=== PATIENT | male | born 1945 | race Caucasian/White ===

== ENCOUNTER 2019-12-02 18:50 | Inpatient (IN) | payer MEDICARE ==
[~2019-12-02] VITALS: Ht 175.3 cm; Wt 124.6 kg
[~2019-12-02 18:50] MED LIST: ACETAMINOPHEN325 MG PO; ALDACTONE25 MG PO; AMBIEN5 MG PO; ANUSOL-HC25 MG RC; BAYER CHEWABLE81 MG PO; BETAPACE 80 MG80 MG PO; CHLORASEPTIC177 ML TOPICAL; ELAVIL25 MG PO; ELIQUIS2.5 MG PO; ELIQUIS5 MG PO; FAMOTIDINE10 MG PO; FARXIGA10 MG PO; FUROSEMIDE40 MG PO; GLUCOSAMINE HC500 MG PO; HUMALOG 30100 UNITS/ SC; JANUMET 50-1,01 EAC1 PO; KLONOPIN0.5 MG PO; LIPITOR10 MG PO; LISINOPRIL-HCT1 EAC8 PO; METOLAZONE2.5 MG PO; MIDODRINE HCL10 MG PO; NORCO-7.51 TAB PO; POTASSIUM CHLO10 ME1 PO; SALINE MIST; TOPROL XL100 MG PO; ULORIC40 MG PO
--- NOTE | 2019-12-02 19:10 | NUR ---
PT SITTING UP WATCHING TV. CL IN REACH. DENIES NEEDS AT THIS TIME. BED IN LOW SIDE RAILS X2. BED ALARM ON. A/O X4. LUNGS DIMINISHED. O2 ON 2L VIA NC. BOWEL ACTIVE X4. RESP EVEN AND UNLABORED. OLSEN INTACT. URINE WNL, NO ODOR. WILL CONTINUE TO MONITOR.
[2019-12-02 22:21] VITALS: BP 108/47
[2019-12-02 22:29] VITALS: BP 108/47; BMI 37.0
--- NOTE | 2019-12-03 04:35 | NUR ---
PT SITTING UP IN BED WATCHING TV. CL IN REACH. OLSEN EMPTIED 600CC OUT. DENIES NEEDS. WCTM
[2019-12-03 07:15] LABS: BASOPHILS 0.1 % (0-2); EOSINOPHILS 9.8 % (0-7); HEMATOCRIT 33.8 % (42.0-54.0); IMMATURE GRANULOCYTES 0.5 % (0-5); LYMPHOCYTES 18.7 % (15-50); MCH 31.6 pg (26.0-34.0); MCHC 32.5 g/dL (31.0-37.0); MEAN PLATELET VOLUME 9.7 fL (7.4-10.4); MONOCYTES 7.3 % (2-11); NEUTROPHILS 63.6 % (40-80); PLATELET COUNT 228 10x3/uL (130-400); RBC 3.48 10x6/uL (4.20-6.10); WBC 7.6 10x3/uL (4.8-10.8)
[2019-12-03 07:26] LABS: ANION GAP 9.6 mmol/L (8-16); CALCIUM 8.8 mg/dL (8.5-10.1); CARBON DIOXIDE 30.1 mmol/L (21.0-32.0); CREATININE - SERUM 1.9 mg/dL (0.6-1.3); POTASSIUM - SERUM 4.7 mmol/L (3.5-5.1)
[2019-12-03 07:49] LABS: MCV 97.1 fL (80.0-100.0)
[2019-12-03 08:00] VITALS: BP 113/69
--- NOTE | 2019-12-03 08:00 | NUR ---
PT RESTING IN BED WITH EYES OPEN CALL LIGHT IN REACH WILL MONITER
--- NOTE | 2019-12-03 10:00 | NUR ---
I have reviewed this patient and I concur with the Shift Assessment completed by the Licensed Practical Nurse today this shift.
[2019-12-03 14:45] VITALS: Ht 175.3 cm; Wt 124.6 kg
--- NOTE | 2019-12-03 17:39 | NUR ---
PT RESTING IN BED WITH EYES OPEN CALL LIGHT IN REACH WILL MONITER
--- NOTE | 2019-12-03 19:28 | NUR ---
PT SITTING UP IN BED WATCHING TV. CL IN REACH. DENIES NEEDS OR PAIN AT THIS TIME. A/O X4. LUNGS CLEAR. BOWEL ACTIVE X4. BED IN LOW SIDE RAILS X2. RESP EVEN AND UNLABORED. O2 ON 2L VIA NC. OLSEN INTACT. URINE WNL, NO ODOR. WILL CONTINUE TO MONITOR.
[2019-12-03 20:42] VITALS: BP 108/63
--- NOTE | 2019-12-03 23:15 | NUR ---
I have reviewed this patient and I concur with the Shift Assessment completed by the Licensed Practical Nurse today this shift.
--- NOTE | 2019-12-04 07:36 | NUR ---
PT RESTING IN BED WITH EYES OPEN CALL LIGHT IN REACH WILL MONITER
[2019-12-04 08:00] VITALS: BP 121/71
[2019-12-04 09:19] LABS: BASOPHILS 0.2 % (0-2); EOSINOPHILS 9.9 % (0-7); HEMATOCRIT 35.9 % (42.0-54.0); HEMOGLOBIN 11.3 g/dL (13.5-17.5); IMMATURE GRANULOCYTES 0.5 % (0-5); LYMPHOCYTES 16.7 % (15-50); MCH 31.5 pg (26.0-34.0); MCHC 31.5 g/dL (31.0-37.0); MEAN PLATELET VOLUME 9.6 fL (7.4-10.4); MONOCYTES 9.8 % (2-11); NEUTROPHILS 62.9 % (40-80); PLATELET COUNT 241 10x3/uL (130-400); RBC 3.59 10x6/uL (4.20-6.10); RDW 14.5 % (11.5-14.5); WBC 8.5 10x3/uL (4.8-10.8)
[2019-12-04 09:34] LABS: CALCIUM 9.5 mg/dL (8.5-10.1); CARBON DIOXIDE 31.7 mmol/L (21.0-32.0); CREATININE - SERUM 1.7 mg/dL (0.6-1.3); POTASSIUM - SERUM 4.7 mmol/L (3.5-5.1)
--- NOTE | 2019-12-04 11:00 | NUR ---
I have reviewed this patient and I concur with the Shift Assessment completed by the Licensed Practical Nurse today this shift.
--- NOTE | 2019-12-04 17:55 | NUR ---
PT RESTING IN BED WITH EYES OPEN CALL LIGHT IN REACH WILL MONITER
[2019-12-04 22:11] VITALS: BP 116/71
--- NOTE | 2019-12-05 02:36 | NUR ---
PT LYING IN BED EYES CLOSED RESTING. RR EVEN AND UNLABORED. CL IN REACH
--- NOTE | 2019-12-05 05:25 | NUR ---
PT LYING IN BED EYES CLOSED RESTING. RR EVEN AND UNLABORED. CL IN REACH
[2019-12-05 08:43] VITALS: BP 120/67
--- NOTE | 2019-12-05 11:29 | NUR ---
ALERT AND ORIENTED. OOB TO THERAPY. CATHETER PULLING AGAINST PENIS, NOT ENOUGH OLSEN LENGTH IN ORDER TO SNAP INTO FIXATION DEVICE DUE TO OBESITY. REDID FIXATION DEVICE AND USED FOAM TAPE TO SECURE. CLAMPING OLSEN EVERY 2 HOURS DIRECTED. LEFT BUTTOCK STAGE 2 SKIN TEARS NOTED AND PT C/O PAIN IN THE AREA. SKIN CLEANED THOROUGHLY, GROIN TO BUTTOCKS, RECTUM. BENADRYL CREAM AND BOUDREAUXS BUTT PASTE APPLIED. PLACE IN BED WITHOUT HEAVY SWEATS AND TURNED ON RIGHT SIDE TO RELIEVE PRESSURE ON LEFT BUTTOCK. ALSO MEDICATED FOR PAIN.
--- NOTE | 2019-12-05 18:00 | NUR ---
ALERT AND ORIENTED THIS PM. CONTINUE OLSEN RETRAINING, CLAMPING EVERY 2 HOURS. PRURITIS MUCH IMPROVED WITH BENADRYL OINTMENT AND MED. CONTINUED TO TURN EVERY 2 HOURS TO KEEP HIM OFF HIS COCCYX. NO SIGNS OF DISTRESS, WILL CONTINUE TO MONITOR.
--- NOTE | 2019-12-05 18:55 | NUR ---
BEDSIDE REPORT COMPLETE. PT LYING IN BED ALERT AND ORIENTED X4. DENIES ANY NEEDS OR PAIN. OLSEN CATH PATENT AND FREE FROM KINKS. RASH NOTED OVER GENERAL BODY. CL IN REACH. FALL PRECAUTIONS IN PLACE. WILL CONTINUE TO MONITOR
[2019-12-05 22:10] VITALS: BP 99/62
--- NOTE | 2019-12-06 00:13 | NUR ---
PT LYING IN BED EYES CLOSED RESTING. RR EVEN AND UNLABORED. CL IN REACH
--- NOTE | 2019-12-06 02:59 | NUR ---
PT LYING IN BED SUPINE EYES CLOSED RESTING. HOB 30 DEGREES. CONTINUES ON 2L VIA NC. CL IN REACH
--- NOTE | 2019-12-06 06:00 | NUR ---
DEFLATED BALLOON 9ML REMOVED FROM BULB. DC OLSEN WITH CATH TIP INTACT. PT TOLERATED WELL
[2019-12-06 07:15] LABS: BASOPHILS 0.5 % (0-2); EOSINOPHILS 15.1 % (0-7); HEMATOCRIT 34.1 % (42.0-54.0); HEMOGLOBIN 10.6 g/dL (13.5-17.5); IMMATURE GRANULOCYTES 0.5 % (0-5); LYMPHOCYTES 18.7 % (15-50); MCHC 31.1 g/dL (31.0-37.0); MCV 99.7 fL (80.0-100.0); MEAN PLATELET VOLUME 9.4 fL (7.4-10.4); MONOCYTES 8.7 % (2-11); NEUTROPHILS 56.5 % (40-80); PLATELET COUNT 232 10x3/uL (130-400); RBC 3.42 10x6/uL (4.20-6.10); RDW 14.6 % (11.5-14.5); WBC 7.8 10x3/uL (4.8-10.8)
[2019-12-06 07:30] LABS: ANION GAP 7.1 mmol/L (8-16); CALCIUM 8.9 mg/dL (8.5-10.1); CARBON DIOXIDE 33.3 mmol/L (21.0-32.0); POTASSIUM - SERUM 5.4 mmol/L (3.5-5.1); URIC ACID 5.1 mg/dL (2.6-7.2)
[2019-12-06 08:25] VITALS: BP 117/79
--- NOTE | 2019-12-06 09:29 | NUR ---
NUTRITION F/U PT TOLERATING RENAL DIET WITH 100% INTAKE RECENT MEALS. VISITED WITH PT RE:SOURCES OF HIDDEN SODIUM IN DIET. PT VOICED UNDERSTANDING. WILL CONTINUE TO MONITOR PT PROGRESS. RD FOLLOWING
--- NOTE | 2019-12-06 10:00 | NUR ---
PATIENT STATES HE DOESNT FEEL LIKE DOING PT TODAY. STATES HE WANTS TO FOCUS ON HIS VOIDING AND SKIN. AM MEDS GIVEN. SKIN CARE DONE WITH CREAMS AND CONTINUED TO TURN. CALL LIGHT WITHIN REACH. NO SIGNS OF DISTRESS.
--- NOTE | 2019-12-06 14:33 | NUR ---
PATIENT ADMITTED TO REHAB FROM ACUTE FLOOR. PATIENT PCP IS DR. LIGHT. HE WOULD LIKE [facility] AT DISCHARGE. DME AT HOME IS A CANE AND A C-PAP. WILL CONTINUE TO FOLLOW WITH PATIENT AND WILL ASSIST WITH NEEDS.
--- NOTE | 2019-12-06 18:00 | NUR ---
PT. DID VOID BY 1200 TODAY. STATES HE MUST STAND TO VOID AT TOILET. HAS VOIDED 5 TIMES TODAY. URINE IS CLEARING MORE AFTER EACH VOID. HE DID ATTEND SOME PT TODAY. MEDICATING FOR PAIN EVERY 4 HOURS. ALSO MEDICATING FOR PRURITIS. CREAM APPLIED TO SKIN. DRESSING OVER BUTTOCK IS DRY AND INTACT, PATIENT HAS DECIDED HE'D LIKE TO CHANGE THIS DURING HIS SHOWER TOMORROW. CALL LIGHT WITHIN REACH.
--- NOTE | 2019-12-06 18:55 | NUR ---
BEDSIDE REPORT COMPLETE. PT LYING IN BED WATCHING TV. DENIES ANY NEEDS OR PAIN. RR EVEN AND UNLABORED. CONTINUES ON 2L VIA NC. CL IN REACH. FALL PRECAUTIONS IN PLACE. WILL CONTINUE TO MONITOR
[2019-12-06 21:50] VITALS: BP 117/58
--- NOTE | 2019-12-07 00:14 | NUR ---
PT LYING IN BED EYES CLOSED RESTING. CONTINUES ON 1.5L VIA NC. RR EVEN AND UNLABORED. CL IN REACH
--- NOTE | 2019-12-07 03:42 | NUR ---
PT LYING IN BED EYES CLOSED RESTING. RR EVEN AND UNLABORED. CL IN REACH
--- NOTE | 2019-12-07 05:22 | NUR ---
PT LYING IN BED EYES CLOSED RESTING. NO SIGNS OF ACUTE DISTRESS NOTED. CL IN REACH
[2019-12-07 07:00] VITALS: BP 114/56
--- NOTE | 2019-12-07 08:00 | NUR ---
PT RESTING IN BED WITH EYES OPEN CALL LIGHT IN REACH WILL MONITER
--- NOTE | 2019-12-07 15:09 | NUR ---
I have reviewed this patient and I concur with the Shift Assessment completed by the Licensed Practical Nurse today this shift.
--- NOTE | 2019-12-07 18:35 | NUR ---
PT RESTING IN BED WITH EYES OPEN CALL LIGHT IN REACH WILL MONITER
--- NOTE | 2019-12-07 21:30 | NUR ---
PATIENT USED CALL LIGHT FOR ASSIT TO BATHROOM. PATIENT ASSIST UP & OUT OF BED. PATIENT AMBULATED USING WALKER TO COMMODE. VOID ONLY. PATIENT RETURNED TO BED ASSISTED PATIENT LEGS INTO BED.CALL LIGHT & TABLE WITHIN REACH. WILL CONTINUE TO MONITOR.
--- NOTE | 2019-12-07 23:19 | NUR ---
PATIENT RECEIVED LAYING IN BED NAKED WITH SHEET OVER HIM. ASSESSMENT & VITAL SIGNS DONE. BED LOW. CALL LIGHT WITHIN REACH. WILL CONTINUE TO MONITOR.
--- NOTE | 2019-12-08 01:00 | NUR ---
I have reviewed this patient and I concur with the Shift Assessment completed by the Licensed Practical Nurse today this shift.
--- NOTE | 2019-12-08 02:10 | NUR ---
PATIENT USED CALL LIGHT FOR ASSIST. PATIENT ASSIST OUT OF BED. PATIENT AMBULATED USING WALKER TO BATHROOM. PATIENT HAD VOID. RETURNED TO BED. ASSIST WITH PATIENT LEGS INTO BED. CALL LIGHT WITHIN REACH. WILL CONTINUE TO MONITOR.
--- NOTE | 2019-12-08 04:00 | NUR ---
PATIENT EYES CLOSED. RESPIRATIONS 18 & EVEN. BED LOW. CALL LIGHT & TABLE WITHIN REACH. WILL CONTINUE TO MONITOR.
[2019-12-08 06:13] VITALS: BP 102/62
[2019-12-08 10:08] VITALS: BP 117/93
--- NOTE | 2019-12-08 12:00 | NUR ---
CASEY UP OOB X2 HRS AND PUT HHIMSELF BACK TO BED.REINERATED TO USE CL TO GET UP.STATED HE WOULD.
[2019-12-08 14:06] VITALS: BP 113/77
--- NOTE | 2019-12-08 20:00 | NUR ---
PATIENT RECEIVED SITTING UP IN BED WATCHING TV. ASSESSMENT & VITAL SIGNS DONE. BED LOW. ALARM ON. CALL LIGHT WITHIN REACH. WILL CONTINUE TO MONITOR.
--- NOTE | 2019-12-08 20:32 | NUR ---
PATIENT USD CALL LIGHT FOR ASSIST OUT OF BED. PATIENT AMBULATED WITH STANDBY ASSIST TO BATHROOM. VOID ONLY. PATIENT RETURNED TO RECLINER. PATIENT CALL LIGHT WITHIN REACH. WILL CONTINUE TO MONITOR.
--- NOTE | 2019-12-08 21:30 | NUR ---
PATIENT MEDICATION HANDED TO HIM. PATIENT DROPPED SPIRONOLACTONE & FAMOTIDINE IN FLOOR. MEDICATIONS TAKEN OUT OF PYXIS & OLD MEDICATIONS PUT IN DISPOSAL BOTTLE. WILL CONTINUE TO MONITOR.
[2019-12-08 22:52] VITALS: BP 126/66
[2019-12-09] VITALS (11 sets, daily range): BP systolic 97–126; BP diastolic 54–78
--- NOTE | 2019-12-09 01:06 | NUR ---
I have reviewed this patient and I concur with the Shift Assessment completed by the Licensed Practical Nurse today this shift.
--- NOTE | 2019-12-09 06:19 | NUR ---
PATIENT GIVEN PAIN MEDICATION. HELD AM MEDICATIONS UNTIL DR. KC'S THE AM MEDS. WILL CONTINUE TO MONITOR.
[2019-12-09 07:31] LABS: BASOPHILS 0.8 % (0-2); EOSINOPHILS 16.5 % (0-7); HEMATOCRIT 34.8 % (42.0-54.0); HEMOGLOBIN 11.1 g/dL (13.5-17.5); IMMATURE GRANULOCYTES 0.4 % (0-5); LYMPHOCYTES 25.4 % (15-50); MCH 31.8 pg (26.0-34.0); MCHC 31.9 g/dL (31.0-37.0); MCV 99.7 fL (80.0-100.0); MEAN PLATELET VOLUME 9.7 fL (7.4-10.4); MONOCYTES 12.6 % (2-11); NEUTROPHILS 44.3 % (40-80); PLATELET COUNT 256 10x3/uL (130-400); RBC 3.49 10x6/uL (4.20-6.10); RDW 15.2 % (11.5-14.5); WBC 7.2 10x3/uL (4.8-10.8)
[2019-12-09 07:48] LABS: ANION GAP 5.9 mmol/L (8-16); CALCIUM 9.8 mg/dL (8.5-10.1); CREATININE - SERUM 1.8 mg/dL (0.6-1.3); POTASSIUM - SERUM 4.9 mmol/L (3.5-5.1)
--- NOTE | 2019-12-09 08:00 | NUR ---
PT RESTING IN BED WITH EYES OPEN CALL LIGHT IN REACH NO PROBLEMS WILL MONITER
[2019-12-09 08:30] LABS: APTT 37.8 SECONDS (22.8-39.4); INR 1.33 (0.85-1.17); PROTIME 16.4 SECONDS (11.6-15.0)
--- NOTE | 2019-12-09 09:00 | NUR ---
PT GOING TO IR FOR CT SAROJ GOLD WITH HOSPITAL STAFF
--- NOTE | 2019-12-09 10:30 | NUR ---
PT BACK FROM [facility] PT VS STABLE NO PROBLEMS WITH PROCEDURE WILL CONTINUE TO MONITER
--- NOTE | 2019-12-09 12:00 | RHP ---
PATIENT: TEQUILA CRESPO MEDICAL RECORD: [id number] ACCOUNT: [id number] LOCATION:[facility]1115 : 49 ADMISSION DATE: 12/02/19 REHABILITATION HISTORY AND PHYSICAL EXAMINATION POST ADMISSION PHYSICIAN EXAMINATION POST ADMISSION PHYSICAL EXAMINATION AND HISTORY AND PHYSICAL DATE OF ADMISSION: 12/02/2019 ADMITTING DIAGNOSIS: Decompensation secondary to congestive heart failure. HISTORY OF PRESENT ILLNESS: The patient is a transfer from [facility]. He was admitted secondary to hyperkalemia, acute kidney insufficiency, and hypotension. He was a direct admit to the ICU for higher level of care. He was noted to be in controlled AFib. He was weak, fatigued. He had 3+ edema. The patient has a large amount of abdominal ascites noted also. The patient was seen by GI for the ascites. They had a CT-guided paracentesis done. Cardiology was consulted. Echo revealed an EF that showed diastolic dysfunction. He does have some moderate aortic insufficiency and tricuspid regurg. Blood pressure has been low, and he has been on dobutamine and midodrine for support. On November 26, he had a CT paracentesis with 9250 cc drained. He was transferred to the PCU. He has been weaned on his Dobutrex. His leukocytosis is improving. He has got urine and blood cultures, which showed no growth. His chest x-ray shows nothing acute. His creatinine is down to 1.8. His AFib is still there, but he is on a controlled rate with sotalol. The patient remains very weak and was found sitting on the floor without injury after a fall. Previously, he was independent with ADLs and mobility. He lives with an elderly roommate and has no assistance at home. Currently, he is mod-to-max assist for ADLs and mobility. He wants to be able to return home at his prior level of functioning. Comorbidities include acute kidney injury, aortic valve calcification, he has got decompensated CHF, diabetes, cyanosis, urinary obstruction, ascites, hepatosplenomegaly, leukocytosis, hyponatremia, venous stasis changes, AFib, coagulopathy. PAST MEDICAL HISTORY: Significant for diabetes, CHF, edema, AFib, leaky valves, constipation, arthritis, cyanosis. PAST SURGICAL HISTORY: Includes hernia repair. ALLERGIES: No known drug allergies. CURRENT MEDICATIONS: Include Uloric 40 mg daily. He is on aspirin 81 mg daily. He is on triamterene 10 mg t.i.d., spironolactone 25 mg b.i.d., sotalol 40 mg b.i.d., Pepcid 10 mg b.i.d., Klonopin 0.25 mg at bedtime, Eliquis 2.5 mg b.i.d., zolpidem 5 mg at bedtime, saline nasal spray. He is on Chloraseptic spray daily. He is on hydrocortisone acetate suppository as needed and [place] 7.5/325 as needed. HABITS: No alcohol or tobacco use. FAMILY HISTORY: Noncontributory. SOCIAL HISTORY: The patient hopes to return back to [place] and get back to his prior level of functioning. HISTORY AND PHYSICAL [id number] TEQUILA CRESPO REVIEW OF SYSTEMS: GENERAL: Does complain of some weakness and fatigue. HEENT: Denies cold, cough, or congestion. CARDIOVASCULAR: Denies any chest pain. PHYSICAL EXAMINATION: VITAL SIGNS: Stable, afebrile. GENERAL: A morbidly obese gentleman, in no acute distress upon exam. HEENT: Normocephalic and atraumatic. Mucosa moist. NECK: Supple. No lymphadenopathy. LUNGS: Clear in the upper franco. HEART: Irregular rate and rhythm. ABDOMEN: Soft, benign, and nondistended. Positive bowel sounds times 4. EXTREMITIES: He does have peripheral edema and changes consistent with venous insufficiency such as discoloration. NEUROLOGIC: He does have noted weakness in both lower extremities. LABORATORY DATA: His white count 7.6, H&H of 11 and 33, and platelet count was noted to be 228. Sodium 134, potassium 4.7, BUN and creatinine of 74 and 1.9, and blood sugar was noted to be 84. 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 The patient has potential to make improvement. We will institute the following multidisciplinary therapies including, but not limited to, physical, occupational, respiratory, speech, nutritional services, prosthetics, and orthotics. Given his complex medical condition and risk for more complications, rehabilitation services cannot be provided at a lower level of care such as a skilled nurse facility. PLAN: 1. Admit to [facility] for an inpatient therapy to include the following disciplines; A. Physical therapy to improve gait, all transfer skills, and bed mobility to modified independent level. B. Occupational therapy to help with activities of daily living. C. Case management to assist with discharge planning and placement options. D. Nutrition to assist with nutritional needs. E. Rehabilitation nursing to assist in monitoring the patient's underlying medical conditions and to assist with any type of bowel or bladder management. 2. The patient's current medications and medical care will be continued. 3. The patient will be placed on standard fall precautions. 4. The patient's estimated length of stay is approximately 7-10 days. 5. We will discuss the patient during care team staff meeting this week. TRANSINT:[id number] Voice Confirmation ID: [id number] DOCUMENT ID: [id number] ELLA notes whether there has been none or any medical/functional change since admission: - No change since pre-admission screen. ELLA attests patient continues to be appropriate for IRF: HISTORY AND PHYSICAL [id number] TEQUILA CRESPO - Continues to be appropriate. SHARAN NAVA MD at 1200 CC: [id number] DICTATION DATE: 12/03/19 1038 SALT MANAGER: 12/03/19 1131 ADM IN [place] [id number] [place] [address]
--- NOTE | 2019-12-09 12:00 | NUR ---
PT HAS GLUED INSCISION TO LEFT SIDE OF ABDOMEN FROM [facility]ISIS SITE LOOKS GOOD NO REDNESS NO DRAINAGE NO COMPLAINTS OF PAIN FROM SITE WILL MONITER
--- NOTE | 2019-12-09 18:05 | NUR ---
PT RESTING IN BED WITH EYES OPEN CALL LIGHT IN REACH WILL MONITER
--- NOTE | 2019-12-09 18:55 | NUR ---
BEDSIDE REPORT COMPLETE. PT LYING IN BED WATCHING TV. DENIES ANY NEEDS OR PAIN. RR EVEN AND UNLABORED. CONTINUES ON 2L VIA NC. LEFT HAND IV WITHOUT REDNESS OR SWELLING. DRESSING C/D/I. CL IN REACH. FALL PRECAUTIONS IN PLACE. WILL CONTINUE TO MONITOR
--- NOTE | 2019-12-09 23:02 | NUR ---
PT LYING IN BED EYES CLOSED RESTING. CONTINUES ON 2L VIA NC. CL IN REACH
[2019-12-10 00:48] VITALS: BP 117/78
--- NOTE | 2019-12-10 02:41 | NUR ---
PT LYING IN BED SUPINE EYES CLOSED RESTING COMFORTABLY. RR EVEN AND UNLABORED. CL IN REACH
[2019-12-10 06:13] VITALS: BP 121/64
--- NOTE | 2019-12-10 06:22 | NUR ---
PT LYING IN BED AWAKE AND ALERT. CONTINUES ON 2L VIA NC. PAIN MEDICATION ADMININSTERED PER PT REQUESTS FOR GENERALIZED PAIN. CL IN REACH
--- NOTE | 2019-12-10 10:20 | NUR ---
PT AM MEDS ADMINISTERED. PT EDDIE BEGUM. FAZAL.
[2019-12-10 11:24] VITALS: BP 121/76
--- NOTE | 2019-12-10 13:10 | NUR ---
Nutrition Follow-up: Diet: Renal PO intake: 75-100% x all; reports good appetite. Gave food preferences. No BM recorded since admit x at least 8 days now. WT: 275# (12/07/19); Admit WT: 250# (12/03/19)-- Note pt with 6L removed via paracentesis yesterday. Meds noted: lasix, miralax, SSI. Labs noted: K 4.9(WNL), 5.4(H)-12/06/19; BUN 64(H); Cr 1.8(H); GFR 40(L). Skin: stage II PU to L buttocks Recommend continue current diet. Will continue to honor food preferences. RD following.
[2019-12-10 18:36] VITALS: BP 142/65
--- NOTE | 2019-12-10 19:10 | NUR ---
BEDSIDE REPORT COMPLETE. PT SITTING UP IN W/C TALKING TO FAMILY ON PHONE. DENIES ANY PAIN OR NEEDS. CONTINUES ON 2L VIA NC. CL IN REACH. FALL PRECAUTIONS IN PLACE. WILL CONTINUE TO MONITOR
[2019-12-11] VITALS: BP 143/55
[2019-12-11 00:35] VITALS: BP 116/64
--- NOTE | 2019-12-11 00:48 | NUR ---
PT LYING IN BED EYES CLOSED RESTING. RR EVEN AND UNLABORED. CL IN REACH
--- NOTE | 2019-12-11 04:00 | NUR ---
PT LYING IN BED SUPINE EYES CLOSED RESTING. CONTINUES ON 2L VIA NC. CL IN REACH
[2019-12-11 05:51] VITALS: BP 106/77
[2019-12-11 06:25] LABS: BASOPHILS 1.5 % (0-2); EOSINOPHILS 19.4 % (0-7); HEMOGLOBIN 10.9 g/dL (13.5-17.5); IMMATURE GRANULOCYTES 0.6 % (0-5); LYMPHOCYTES 26.3 % (15-50); MCH 31.3 pg (26.0-34.0); MCHC 31.1 g/dL (31.0-37.0); MCV 100.6 fL (80.0-100.0); MEAN PLATELET VOLUME 9.5 fL (7.4-10.4); MONOCYTES 11.5 % (2-11); NEUTROPHILS 40.7 % (40-80); PLATELET COUNT 250 10x3/uL (130-400); RBC 3.48 10x6/uL (4.20-6.10); RDW 15.3 % (11.5-14.5); WBC 6.8 10x3/uL (4.8-10.8)
[2019-12-11 06:41] LABS: ANION GAP 8.8 mmol/L (8-16); CALCIUM 9.4 mg/dL (8.5-10.1); CARBON DIOXIDE 34.7 mmol/L (21.0-32.0); CREATININE - SERUM 1.7 mg/dL (0.6-1.3); POTASSIUM - SERUM 4.5 mmol/L (3.5-5.1)
[2019-12-11 12:00] VITALS: BP 106/58
--- NOTE | 2019-12-11 14:15 | NUR ---
SCHEDULED MEDICAID TRANSPORTATION FOR PATIENT DISCHARGE DATE BEING 12/13/19, [facility] # [id number] . MEDICAID TRANSPORTATION # [id number]. 12:00 SERVICENOW ADMINISTRATOR DEVELOPER TIME.
--- NOTE | 2019-12-11 18:57 | NUR ---
BEDSIDE REPORT COMPLETE. PT LYING IN BED SUPINE WATCHING TV. DENIES ANY NEEDS OR PAIN. NO SIGNS OF ACUTE DISTRESS NOTED. CL IN REACH. FALL PRECAUTIONS IN PLACE. WILL CONTINUE TO MONITOR
[2019-12-11 22:06] VITALS: BP 121/58
[2019-12-12 00:05] VITALS: BP 131/71
--- NOTE | 2019-12-12 02:10 | NUR ---
PT LYING IN BED SUPINE, HOB 15 DEGREES, EYES CLOSED RESTING. RR EVEN AND UNLABORED. CONTINUES ON 2L VIA NC. CL IN REACH
--- NOTE | 2019-12-12 04:59 | NUR ---
PT LYING IN BED SUPINE, HOB 10 DEGREES, EYES CLOSED RESTING. RR EVEN AND UNLABORED. CL IN REACH
[2019-12-12 05:58] VITALS: BP 152/60
--- NOTE | 2019-12-12 07:25 | NUR ---
PT RESTING IN BED WITH EYES OPEN CALL LIGHT IN REACH WILL MONITER
[2019-12-12 12:00] VITALS: BP 107/68
--- NOTE | 2019-12-12 12:00 | NUR ---
I have reviewed this patient and I concur with the Shift Assessment completed by the Licensed Practical Nurse today this shift.
--- NOTE | 2019-12-12 16:39 | NUR ---
CARE TEAM MEETING: PATIENT ATTENDED HIS MEETING. HIS QUESTIONS AND CONCERNS WERE ADDRESSED. TENATIVE DISCHARGE DATE IS 12/13/19. WILL CONTINUE TO FOLLOW WITH PATIENT.
[2019-12-12 18:36] VITALS: BP 110/54
--- NOTE | 2019-12-12 18:37 | NUR ---
PT RESTING IN BED WITH EYES OPEN CALL LIGHT IN REACH WILL MONITER
[2019-12-12 20:00] VITALS: BP 110/54
--- NOTE | 2019-12-12 20:00 | NUR ---
PATIENT RECEIVED SITTING UP IN BED WATCHING TV. ASSESSMENT & VITAL SIGNS DONE. NO C/O PAIN OR DISTRESS. BED LOW. CALL LIGHT & URINAL WITHIN REACH. WILL CONTINUE TO MONITOR.
--- NOTE | 2019-12-13 02:36 | NUR ---
I have reviewed this patient and I concur with the Shift Assessment completed by the Licensed Practical Nurse today this shift.
--- NOTE | 2019-12-13 03:38 | NUR ---
PATIENT AWAKE SITTING UP RIGHT SIDE OF BED. BED LOW. CALL LGITH WITHIN REACH. WILL CONTINUE TO MONITOR.
--- NOTE | 2019-12-13 04:00 | NUR ---
PATIENT C/O LEFT SHOULDER & ANKLE PAIN. PAIN LEVEL 6. CALL LIGHT WITHIN REACH. WILL CONTINUE TO MONITOR.
--- NOTE | 2019-12-13 06:12 | NUR ---
VITAL SIGNS T98.1 P87 02 95% RA BP 135/87.
[2019-12-13 08:16] LABS: BASOPHILS 1.1 % (0-2); EOSINOPHILS 17.8 % (0-7); HEMOGLOBIN 11.9 g/dL (13.5-17.5); IMMATURE GRANULOCYTES 0.5 % (0-5); LYMPHOCYTES 21.9 % (15-50); MCH 32.1 pg (26.0-34.0); MCHC 32.2 g/dL (31.0-37.0); MCV 99.7 fL (80.0-100.0); MEAN PLATELET VOLUME 9.9 fL (7.4-10.4); MONOCYTES 7.3 % (2-11); NEUTROPHILS 51.4 % (40-80); PLATELET COUNT 295 10x3/uL (130-400); RBC 3.71 10x6/uL (4.20-6.10); RDW 15.3 % (11.5-14.5); WBC 8.1 10x3/uL (4.8-10.8)
[2019-12-13 08:29] LABS: ANION GAP 10.9 mmol/L (8-16); CALCIUM 9.8 mg/dL (8.5-10.1); CARBON DIOXIDE 35.5 mmol/L (21.0-32.0); CREATININE - SERUM 1.8 mg/dL (0.6-1.3); POTASSIUM - SERUM 4.4 mmol/L (3.5-5.1)
[2019-12-13] MEDS ORDERED: LASIX40 MG PO (08:55)
[2019-12-13] MEDS ORDERED: NORCO-7.5 PO (08:56)
--- NOTE | 2019-12-13 09:48 | NUR ---
AM MEDS ADMINISTERED. PT DENIES NEEDS. WCTM.
--- NOTE | 2019-12-13 10:54 | NUR ---
PATIENT DISCHARGING HOME TODAY VIA MEDICAID TRANSPORTATION, [employer] # [id number]. [facility] WILL PROVIDE THERAPY AT HOME. NO NEW DME NEEDED AT THIS TIME. DR. LIGHT 12/19/2019 @ 3:20. PATIENT CHOICE FORM FOR HOME HEALTH SIGNED, ONE GIVEN TO PATIENT AND ONE FILED IN CHART. PATIENT DECLINED COMPARE DATA HE HAS USED [facility] IN THE PAST. [facility] FORM SIGNED, EXPALINED AND FILED IN CHART AND ONE GIVEN TO PATIENT. SICHARGE INSTRUCTIONS FAXED TO PCP, HOME HEALTH AND REVIEWED WITH PATIENT.
--- NOTE | 2019-12-13 10:56 | NUR ---
DISCHARGE INSTRUCTIONS REV'D AND PT STATES UNDERSTANDING. HARD SCRIPT GIVEN FOR PAIN MEDICATIONS. PT WAITING FOR MEDICARE BUS AT THIS TIME.
--- NOTE | 2019-12-13 18:34 | NUR ---
PT ESCORTED OUT BY HOSPITAL STAFF. PT DISCHARGING HOME WITH MEDICAID TRANSPORTATION.
== END 2019-12-13 18:34 | disposition home health service (06) | DRG 91 ==
LOC: D.REHAB 18:50
PROVIDERS: Internal Medicine Nephrology; Specialist; ADMIT Emergency Medicine; ATTEND Emergency Medicine
PROC: 0W9G3ZZ Drainage of Peritoneal Cavity, Percutaneous Approach (ICD-10-PCS; principal; 2019-12-09 09:27)
DX: G72.9 Myopathy, unspecified (principal); I50.31 Acute diastolic (congestive) heart failure; N17.9 Acute kidney failure, unspecified; R18.8 Other ascites; E87.1 Hypo-osmolality and hyponatremia; I13.0 Hypertensive heart and chronic kidney disease with heart failure and stage 1 through stage 4 chronic kidney disease, or unspecified chronic kidney disease; E87.5 Hyperkalemia; I70.0 Atherosclerosis of aorta; R23.0 Cyanosis; N13.9 Obstructive and reflux uropathy, unspecified; R16.2 Hepatomegaly with splenomegaly, not elsewhere classified; D72.829 Elevated white blood cell count, unspecified; I48.91 Unspecified atrial fibrillation; E11.22 Type 2 diabetes mellitus with diabetic chronic kidney disease; N18.9 Chronic kidney disease, unspecified